=== PATIENT | female | born 1950 | race Caucasian/White ===

== ENCOUNTER → 2017-09-26 16:28 | Outpatient (CLI) | payer BC | END | disposition home or self-care (01) | LOC: D.MAMMO 13:15 | DX: Z12.31 Encounter for screening mammogram for malignant neoplasm of breast (principal) ==

== ENCOUNTER → 2017-09-27 16:21 | Outpatient (CLI) | payer BC | END | disposition home or self-care (01) | LOC: D.MAMMO 08:30 | DX: R92.8 Other abnormal and inconclusive findings on diagnostic imaging of breast (principal) ==

== ENCOUNTER → 2017-10-10 08:46 | Outpatient (CLI) | payer BC ==
[2017-10-11 12:14] LABS: FOLATE (FOLIC ACID) - SERUM >20.0 ng/mL (>3.0)
--- NOTE | 2017-10-12 06:53 | EMG ---
PATIENT:[facility] DATE OF SERVICE: 10/10/17 MEDICAL RECORD: [id number] DATE OF : 54 LOCATION: [facility] ADMISSION DATE: REFERRING PHYSICIAN: LATOSHA GONZALEZ MD INTERPRETING PHYSICIAN: LATOSHA GONZALEZ MD DATE OF SERVICE: 10/10/2017 Referred as an outpatient by Latosha Gonzalez MD. ELECTROMYOGRAPHIC DATA: Electromyographic examination is limited to both lower extremities. In the right lower extremity, right peroneal motor stimulation elicits a compound motor action potential with a distal latency of 5.9 milliseconds, peak amplitude of 4 millivolts, and calculated conduction velocity of 46 meters per second. Right tibial motor stimulation elicits a compound motor action potential with a distal latency of 5.2 milliseconds, peak amplitude of 15 millivolts, and calculated conduction velocity of 44 meters per second. Antidromic right sural sensory stimulation elicits a response with a distal latency of 3.1 milliseconds, amplitude of 6 microvolts, and calculated conduction velocity of 40 meters per second. The right lower extremity H reflex recording at gastrocsoleus has a latency of 34 milliseconds. In the left lower extremity, left peroneal motor stimulation elicits a compound motor action potential with a distal latency of 4.9 milliseconds, peak amplitude of 4 millivolts, and calculated conduction velocity of 43 meters per second. Left tibial motor stimulation elicits a compound motor action potential with a distal latency of 4.7 milliseconds, peak amplitude of 8 millivolts, and calculated conduction velocity of 37 meters per second. Antidromic left sural sensory stimulation elicits no reliable response. The left lower extremity H reflex recording at gastrocsoleus has a latency of 33 milliseconds. Needle electrode examination is limited to both lower extremities as well. Muscles interrogated include the abductor hallucis, extensor digitorum brevis, abductor digiti quinti, tibialis anterior, medial gastrocnemius, vastus lateralis, semitendinosus, and gluteus elly. There is no abnormality of insertional activity and no abnormal spontaneous activity is seen in all muscles interrogated. Motor unit potential morphology and the pattern of motor unit potential firing and recruitment is normal in all muscles sampled. INTERPRETATION: Electromyographic examination of both lower extremities demonstrates all calculated conduction velocities to fall at or just below the lower limits of normal with absence of the left sural sensory response most consistent with a diffuse disorder of the lower motor neuron, mild in degree electrically, consistent with the diagnosis of a sensory motor peripheral polyneuropathy. There is no electrical evidence of a superimposed lumbosacral radiculopathy or other lesion of the lower motor neuron in the lower extremities at this time. There is no evidence for active denervation. TRANSINT:[id number] Voice Confirmation ID: [id number] DOCUMENT ID: [id number] ELECTROMYGRAM/NERVE CONDUCTION [id number] [facility] DONALD P MD at [id number] CC: [id number] DICTATION DATE: 10/11/17 07 SERVICES MGR: 10/11/17 1329 DEP CLI 10/10/17 [facility] [address] [place] [address]
== END | disposition home or self-care (01) ==
LOC: D.CN 08:46
PROVIDERS: Psychiatry & Neurology Neurology
DX: G60.9 Hereditary and idiopathic neuropathy, unspecified (principal)

== ENCOUNTER → 2018-10-31 18:29 | Outpatient (CLI) | payer BC | END | disposition home or self-care (01) | LOC: D.MAMMO 15:30 | DX: Z12.31 Encounter for screening mammogram for malignant neoplasm of breast (principal) ==

== ENCOUNTER 2019-11-23 15:00 | Outpatient (CLI) | payer BC, MEDICARE | END 2019-11-23 15:30 | disposition home or self-care (01) | LOC: D.MAMMO 15:00 | PROVIDERS: ATTEND Family Medicine | DX: Z12.31 Encounter for screening mammogram for malignant neoplasm of breast (principal) ==